=== PATIENT | male | born 2000 | race Caucasian/White ===

== ENCOUNTER 2025-02-26 12:26 | Emergency (ER) | payer MEDICAID ==
[~2025-02-26] VITALS: Ht 175.3 cm; Wt 91.0 kg
[2025-02-26 12:28] VITALS: O2SAT 97
[2025-02-26 12:32] VITALS: BP 142/79; PULSE 111; RESP 16; TEMP 36.9; O2SAT 97
[2025-02-26] MEDS: KETOROLAC 30MG/ML VIAL IM STA (13:27)
[2025-02-26] MEDS: ACETAMINOPHEN 325MG TABLET PO STA (13:27)
[2025-02-26] MEDS ORDERED: TOPUD PO (15:19)
[2025-02-26] MEDS ORDERED: IBUP-2030 MT (15:19)
== END 2025-02-26 15:32 | disposition home or self-care (01) ==
LOC: ER 12:35
DX: S62.111A Displaced fracture of triquetrum [cuneiform] bone, right wrist, initial encounter for closed fracture (principal); Z98.890 Other specified postprocedural states; X58.XXXA Exposure to other specified factors, initial encounter; Y93.89 Activity, other specified; Y92.89 Other specified places as the place of occurrence of the external cause; Y99.8 Other external cause status
CPT/HCPCS: 99284; 73100; 73120; 73620; 29125; 96372; J1885